=== PATIENT | female | born 1990 | race Caucasian/White ===

== ENCOUNTER 2019-05-17 14:10 | Emergency (ER) | payer BC ==
--- NOTE | 2019-05-17 14:12 | ERPHSYRPT ---
- History of Present Illness Time Seen by Provider: 05/17/19 14:12 Historian: patient Exam Limitations: no limitations Physician History: Acute onset of epigastric pain, [employer], radiating to chest. Pt has H/O SVT and ablation in the past Timing/Duration: today Activities at Onset: activity Quality: sharpness Location: epigastric Chest Pain Radiation: abdomen Severity of Pain-Max: moderate Severity of Pain-Current: mild Modifying Factors: Improves With: nothing Associated Symptoms: nausea, heartburn, abdominal pain, hurts to breathe Prior Chest Pain/Cardiac Workup: echocardiography Nitro Today/Relief: no nitro taken today Aspirin Treatment Today: no aspirin today Allergies/Adverse Reactions: No Known Drug Allergies Allergy (Unverified 05/17/19 14:34) Home Medications: No Reportable Medications [No Reported Medications] 05/17/19 [History] - Review of Systems Constitutional: No Fever, No Chills Eyes: No Symptoms Ears, Nose, & Throat: No Symptoms Respiratory: No Cough, No Dyspnea Cardiac: No Chest Pain, No Edema, No Syncope Abdominal/Gastrointestinal: Abdominal Pain, Nausea, No Vomiting, No Diarrhea Genitourinary Symptoms: No Dysuria Musculoskeletal: No Symptoms, No Back Pain, No Neck Pain Skin: No Rash Neurological: No Dizziness, No Focal Weakness, No Sensory Changes Psychological: No Symptoms Endocrine: No Symptoms All Other Systems: Reviewed and Negative - Past Medical History Pertinent Past Medical History: Yes Neurological History: No Pertinent History Cardiac History: Other (svt X 3) Respiratory History: No Pertinent History Endocrine Medical History: Other (Hemithyroidectomy) GI Medical History: No Pertinent History History: No Pertinent History - Past Surgical History Past Surgical History: Yes Neuro Surgical History: No Pertinent History Cardiac: Other (Ablation) Respiratory: No Pertinent History Gastrointestinal: No Pertinent History Genitourinary: No Pertinent History - Social History Smoking Status: Never smoker Exposure to second hand smoke: No Alcohol Use: None Drug Use: none Significant Family History: no pertinent family hx - Female History Hx Now: No - Nursing Vital Signs Nursing Vital Signs: Initial Vital Signs Temperature 97.9 F 05/17/19 14:11 Pulse Rate 86 05/17/19 14:11 Respiratory Rate 16 05/17/19 14:11 Blood Pressure 141/83 05/17/19 14:11 O2 Sat by Pulse Oximetry 99 05/17/19 14:11 Pain Scale Pain Intensity 0 - Physical Exam General Appearance: no apparent distress, alert, other (Pt examined in presence of female RN) Eye Exam: PERRL/EOMI, eyes nml inspection Ears, Nose, Throat Exam: normal ENT inspection, moist mucous membranes Neck Exam: normal inspection, non-tender, supple, full range of motion Respiratory Exam: normal breath sounds, lungs clear, No respiratory distress Cardiovascular Exam: regular rate/rhythm, normal heart sounds Gastrointestinal/Abdomen Exam: soft, No tenderness, No mass Back Exam: normal inspection, No CVA tenderness, No vertebral tenderness Extremity Exam: normal inspection, normal range of motion Neurologic Exam: alert, oriented x 3, cooperative, normal mood/affect, sensation nml, No motor deficits Skin Exam: normal color, warm, dry - Course Nursing assessment & vital signs reviewed: Yes EKG Interpreted by Me: Sinus Tach, NORMAL AXIS, NORMAL INTERVALS, NORMAL QRS, Non-specific ST Changes - Radiology Exams Chest X-ray Interpretation: Negative Ordered Tests: Active Orders 24 hr Category Date Time Status EKG-ER Only STAT Care 05/17/19 14:14 Active CHEST 1 VIEW (PORTABLE) Stat Exams 05/17/19 14:13 Completed CBC W DIFF Stat Lab 05/17/19 14:20 Completed CMP Stat Lab 05/17/19 14:20 Completed D-DIMER QUANTITATION Stat Lab 05/17/19 14:20 Completed HCG QUALITATIVE,SERUM Stat Lab 05/17/19 14:20 Completed LIPASE Stat Lab 05/17/19 14:20 Completed NT PRO BNP Stat Lab 05/17/19 14:20 Completed TROPONIN Stat Lab 05/17/19 14:20 Completed Lab/Rad Data: Laboratory Result Diagrams 05/17/19 14:20 05/17/19 14:20 Laboratory Results 05/17/19 05/17/19 05/17/19 Range/Units 14:20 14:20 14:20 WBC (4.0-10.5) K/mm3 RBC (4.1-5.4) M/mm3 Hgb (12.0-16.0) gm/dl Hct (35-47) % MCV (78-100) fl MCH (26-32) pg MCHC (32-36) g/dl RDW (11.5-14.0) % Plt Count (150-450) K/mm3 MPV (6-9.5) fl Gran % (36.0-66.0) % Eos # (Auto) (0-0.5) Absolute Lymphs (auto) (1.0-4.6) Absolute Monos (auto) (0.0-1.3) Lymphocytes % (24.0-44.0) % Monocytes % (0.0-12.0) % Eosinophils % (0.00-5.0) % Basophils % (0.0-0.4) % Absolute Granulocytes (1.4-6.9) Basophils # (0-0.4) D-Dimer 453 (215-500) ng/mL Sodium 141 (137-145) mmol/L Potassium 3.6 (3.5-5.1) mmol/L Chloride 104 (98-107) mmol/L Carbon Dioxide 23 (22-30) mmol/L Anion Gap 16.9 H (5-15) MEQ/L BUN 13 (7-17) mg/dL Creatinine 0.56 (0.52-1.04) mg/dL Estimated GFR > 60.0 ML/MIN Glucose 94 (74-106) mg/dL Calcium 9.8 (8.4-10.2) mg/dL Total Bilirubin 0.40 (0.2-1.3) mg/dL AST 21 (14-36) U/L ALT 14 (0-35) U/L Alkaline Phosphatase 54 (38-126) U/L Troponin I < 0.012 (0.000-0.034) ng/mL NT-Pro-B Natriuret Pep 54.0 (0-450) pg/mL Serum Total Protein 8.2 (6.3-8.2) g/dL Albumin 4.7 (3.5-5.0) g/dL Lipase 107 (23-300) U/L Serum , Qual NEGATIVE (Negative) 05/17/19 Range/Units 14:20 WBC 6.7 (4.0-10.5) K/mm3 RBC 4.43 (4.1-5.4) M/mm3 Hgb 12.8 (12.0-16.0) gm/dl Hct 37.6 (35-47) % MCV 84.9 (78-100) fl MCH 28.9 (26-32) pg MCHC 34.0 (32-36) g/dl RDW 12.7 (11.5-14.0) % Plt Count 209 (150-450) K/mm3 MPV 11.2 H (6-9.5) fl Gran % 56.1 (36.0-66.0) % Eos # (Auto) 0.13 (0-0.5) Absolute Lymphs (auto) 2.29 (1.0-4.6) Absolute Monos (auto) 0.48 (0.0-1.3) Lymphocytes % 34.4 (24.0-44.0) % Monocytes % 7.2 (0.0-12.0) % Eosinophils % 2.0 (0.00-5.0) % Basophils % 0.3 (0.0-0.4) % Absolute Granulocytes 3.74 (1.4-6.9) Basophils # 0.02 (0-0.4) D-Dimer (215-500) ng/mL Sodium (137-145) mmol/L Potassium (3.5-5.1) mmol/L Chloride (98-107) mmol/L Carbon Dioxide (22-30) mmol/L Anion Gap (5-15) MEQ/L BUN (7-17) mg/dL Creatinine (0.52-1.04) mg/dL Estimated GFR ML/MIN Glucose (74-106) mg/dL Calcium (8.4-10.2) mg/dL Total Bilirubin (0.2-1.3) mg/dL AST (14-36) U/L ALT (0-35) U/L Alkaline Phosphatase (38-126) U/L Troponin I (0.000-0.034) ng/mL NT-Pro-B Natriuret Pep (0-450) pg/mL Serum Total Protein (6.3-8.2) g/dL Albumin (3.5-5.0) g/dL Lipase (23-300) U/L Serum , Qual (Negative) - Progress Progress: improved Air Movement: good Progress Note: 05/17/19 16:36 No pain Blood Culture(s) Obtained: No Antibiotics given: No Discussed with : Other Will see patient in: office Counseled pt/family regarding: lab results, diagnosis, need for follow-up, rad results - Departure Departure Disposition: Home Clinical Impression: Epigastric abdominal pain Condition: Good Critical Care Time: No Referrals: HEATHER COTA MD [Primary Care Provider] - Additional Instructions: See PCP in 2-3 days and get outpt US. Take OTC Prilosec
--- NOTE | 2019-05-17 14:39 | XRAY ---
Indication: Chest/upper abdomen pain. Comparison: None Portable chest demonstrates normal heart, lungs, and bony thorax.
[2019-05-17 14:40] LABS: BASOPHIL % 0.3 % (0.0-0.4); Basophil (Absolute #) 0.02 (0-0.4); Eosinophil (Absolute #) 0.13 (0-0.5); Granulocyte Absolute (ANC) 3.74 (1.4-6.9); Granulocytes % 56.1 % (36.0-66.0); Hematocrit 37.6 % (35-47); Hemoglobin 12.8 gm/dl (12.0-16.0); Lymphocyte (Absolute #) 2.29 (1.0-4.6); Lymphocytes % 34.4 % (24.0-44.0); Mean Cell Volume 84.9 fl (78-100); Mean Corpuscular Hemoglobin 28.9 pg (26-32); Mean Platelet Volume 11.2 fl (6-9.5); Monocyte (Absolute #) 0.48 (0.0-1.3); Monocytes % 7.2 % (0.0-12.0); Platelet Count 209 K/mm3 (150-450); Red Blood Count 4.43 M/mm3 (4.1-5.4); Red Cell Distribution Width 12.7 % (11.5-14.0); White Blood Count 6.7 K/mm3 (4.0-10.5)
[2019-05-17 14:57] LABS: ALBUMIN 4.7 g/dL (3.5-5.0); ALKALINE PHOSPHATASE 54 U/L (38-126); ANION GAP 16.9 MEQ/L (5-15); BLOOD UREA NITROGEN 13 mg/dL (7-17); CHLORIDE 104 mmol/L (98-107); Calcium 9.8 mg/dL (8.4-10.2); Carbon Dioxide 23 mmol/L (22-30); Creatinine 1 0.56 mg/dL (0.52-1.04); Glucose 94 mg/dL (74-106); LIPASE 107 U/L (23-300); Potassium 3.6 mmol/L (3.5-5.1); SGOT/AST 21 U/L (14-36); SGPT/ALT 14 U/L (0-35); SODIUM 141 mmol/L (137-145); Total Protein 8.2 g/dL (6.3-8.2)
[2019-05-17 15:05] LABS: TROPONIN < 0.012 ng/mL (0.000-0.034)
[2019-05-17 16:48] VITALS: BP 106/70; PULSE 87; O2SAT 99
== END 2019-05-17 17:02 | disposition home or self-care (01) ==
LOC: ED 14:10
DX: R10.13 Epigastric pain (principal)
CPT/HCPCS: 36000; 36415; 71045; 80053; 81025; 83690; 83880; 84484; 85025; 85379; 93005; 99284